=== PATIENT | female | born 1960 | race Caucasian/White ===

== ENCOUNTER → 2016-10-03 | Outpatient (CLI) | payer OTHER ==
[~2016-10-03] MED LIST: CALC-192 PO; CHOL20002 PO; MULT-516 PO; OMEG1CAP24 PO; VITA1CAP PO; bioidentical hormone; tumeric PO
[2016-10-03 10:04] LABS: HEMOGLOBIN 13.4 g/dL (11.7-16.4)
[2016-10-03 10:13] LABS: BLOOD UREA NITROGEN 17 mg/dL (7-18)
== END | disposition home or self-care (01) ==
LOC: STAR 09:11
PROVIDERS: ATTEND Neurological Surgery
DX: Z01.818 Encounter for other preprocedural examination (principal); D32.1 Benign neoplasm of spinal meninges; R79.1 Abnormal coagulation profile
CPT/HCPCS: 36415; 71020; 80048; 85025; 85610; 85730; 93005

== ENCOUNTER 2016-10-24 05:31 | Inpatient (IN) | payer OTHER ==
[2016-10-03 09:40] VITALS: BP 117/72
[~2016-10-24] VITALS: Ht 157.5 cm; Wt 54.1 kg
[2016-10-24] MEDS ORDERED: LACTATED RINGERS 1,000 ML IV SCH (06:39)
[2016-10-24] MEDS ORDERED: LIDOCAINE 1%, 2ML ONE (06:40)
[2016-10-24] MEDS ORDERED: LIDOCAINE 1%, 2ML SQ PRN (07:00)
[2016-10-24] MEDS ORDERED: BACITRACIN 50,000 UNIT ONE (07:41)
[2016-10-24] MEDS ORDERED: BUPIVACAINE/PF-EPI 0.25% 1:200K ONE (07:41)
[2016-10-24] MEDS ORDERED: THROMBIN 5,000 UNIT VIAL TP ONE (07:41)
[2016-10-24] MEDS ORDERED: KETAMINE 10 MG/ML, 20ML ONE (07:48)
[2016-10-24] MEDS ORDERED: FENTANYL PF 250 MCG/5ML ONE (07:48)
[2016-10-24] MEDS ORDERED: PROPOFOL 10 MG/ML, 50ML ONE (07:58)
[2016-10-24] MEDS ORDERED: METOCLOPRAMIDE 5 MG/ML, 2ML ONE (07:58)
[2016-10-24] MEDS ORDERED: ONDANSETRON 2MG/ML, 2ML ONE (07:58)
[2016-10-24] MEDS ORDERED: ROCURONIUM 10 MG/ML ONE (07:58)
[2016-10-24] MEDS ORDERED: CEFAZOLIN 1,000 MG ONE (07:58)
[2016-10-24] MEDS ORDERED: SUCCINYLCHOLINE 20 MG/ML, 10ML ONE (07:58)
[2016-10-24] MEDS ORDERED: PROPOFOL 10 MG/ML, 20ML ONE (07:58)
[2016-10-24] MEDS ORDERED: DEXAMETHASONE 4 MG/ML, 1ML ONE (07:58)
[2016-10-24] MEDS ORDERED: FENTANYL PF 100 MCG/2ML IV PRN (08:30)
[2016-10-24] MEDS ORDERED: OXYcodone 5 MG/5 ML ORAL.SOL UDC PO PRN (08:30)
[2016-10-24] MEDS ORDERED: MEPERIDINE/PF 25MG/0.5ML IVPush PRN (08:30)
[2016-10-24] MEDS ORDERED: hydrALAzine 20 MG/ML, 1ML IV PRN (08:30)
[2016-10-24] MEDS ORDERED: LABETALOL 5MG/ML, 20ML IV PRN (08:30)
[2016-10-24] MEDS ORDERED: PROMETHAZINE 25 MG/ML, 1ML IV PRN (08:30)
[2016-10-24] MEDS ORDERED: ONDANSETRON 2MG/ML, 2ML IVPush PRN (08:30)
[2016-10-24] MEDS ORDERED: MIDAZOLAM 1 MG/ML, 2ML IV PRN (08:30)
[2016-10-24] MEDS ORDERED: HYDROmorphone 1 MG/ML, 1ML IV PRN (08:30)
[2016-10-24] MEDS ORDERED: BACITRACIN OINT 500U/GM, 15 GM ONE (08:35)
[2016-10-24] MEDS ORDERED: BISACODYL 10 MG SUPP PR PRN (10:30)
[2016-10-24] MEDS ORDERED: DIPHENHYDRAMINE 50 MG CAPSULE PO PRN (10:30)
[2016-10-24] MEDS ORDERED: MAGNESIUM HYDROXIDE 8%, 30ML UDC PO PRN (10:30)
[2016-10-24] MEDS ORDERED: SENNA/DOCUSATE TABLET PO PRN (10:30)
[2016-10-24] MEDS ORDERED: HYDROcodone/APAP 5/325 TABLET PO PRN (10:30)
[2016-10-24] MEDS ORDERED: HYDROmorphone PCA 30 MG/30 ML IV PRN (10:30)
[2016-10-24] MEDS ORDERED: PHARMACY MAY ADJ FOR RENAL FX MC PRN (10:30)
[2016-10-24] MEDS ORDERED: OXYcodone/APAP 5/325MG TABLET PO PRN (10:30)
[2016-10-24] MEDS ORDERED: PROMETHAZINE 25 MG/ML, 1ML IM PRN (10:30)
[2016-10-24] MEDS ORDERED: HYDROmorphone PCA 30 MG/30 ML ONE (10:37)
[2016-10-24] MEDS: METHOCARBAMOL 750 MG TABLET PO PRN (12:20)
[2016-10-24 14:33] VITALS: BP 116/73
[2016-10-24] MEDS: NS + 20MEQ KCL 1,000 ML IV SCH (15:50)
[2016-10-24] MEDS: CEFAZOLIN PMX 1GM/50ML 50 ML IVPB SCH (15:50)
[2016-10-24 19:16] VITALS: BP 113/68
[2016-10-24] MEDS: SODIUM CHLORIDE FLUSH 10ML SYR IVF SCH (20:12)
[2016-10-24] MEDS: ONDANSETRON 2MG/ML, 2ML IVPush PRN (20:12)
[2016-10-24] MEDS: CALCIUM/VITAMIN D3 250-125 TABLET PO SCH (20:17)
[2016-10-24] MEDS: CHOLECALCIFEROL 1,000 UNIT TABLET PO SCH (20:17)
[2016-10-25] MEDS: CEFAZOLIN PMX 1GM/50ML 50 ML IVPB SCH (00:49)
[2016-10-25] MEDS: METHOCARBAMOL 750 MG TABLET PO PRN ×3 (00:49→17:12)
[2016-10-25 01:58] VITALS: BP 93/59
[2016-10-25] MEDS: NS + 20MEQ KCL 1,000 ML IV SCH ×2 (03:53→15:59)
[2016-10-25] MEDS: ONDANSETRON 2MG/ML, 2ML IVPush PRN ×2 (04:28→12:00)
[2016-10-25 08:05] VITALS: BP 94/64
[2016-10-25] MEDS: MULTIVITAMIN 1 TABLET PO SCH (09:33)
[2016-10-25] MEDS: MULTIVITS,STRESS FORMULA 1 TABLET PO SCH (09:33)
[2016-10-25] MEDS: CALCIUM/VITAMIN D3 250-125 TABLET PO SCH ×2 (09:34→20:45)
[2016-10-25] MEDS: CHOLECALCIFEROL 1,000 UNIT TABLET PO SCH ×2 (09:34→20:45)
[2016-10-25] MEDS: SODIUM CHLORIDE FLUSH 10ML SYR IVF SCH ×2 (09:34→20:45)
[2016-10-25] MEDS ORDERED: KETOROLAC 30 MG/1 ML IM PRN (13:00)
[2016-10-25 13:25] VITALS: BP 99/64
[2016-10-25] MEDS: KETOROLAC 30 MG/1 ML IV PRN ×2 (14:05→22:20)
[2016-10-25 20:03] VITALS: BP 91/58
[2016-10-26] MEDS: METHOCARBAMOL 750 MG TABLET PO PRN ×2 (00:21→08:22)
[2016-10-26 00:57] VITALS: BP 82/46
[2016-10-26 02:09] VITALS: BP 95/62
[2016-10-26] MEDS: NS + 20MEQ KCL 1,000 ML IV SCH (02:30)
[2016-10-26] MEDS: KETOROLAC 30 MG/1 ML IV PRN (06:04)
[2016-10-26] MEDS: MULTIVITS,STRESS FORMULA 1 TABLET PO SCH (09:41)
[2016-10-26] MEDS: CALCIUM/VITAMIN D3 250-125 TABLET PO SCH (09:41)
[2016-10-26] MEDS: MULTIVITAMIN 1 TABLET PO SCH (09:41)
[2016-10-26] MEDS: CHOLECALCIFEROL 1,000 UNIT TABLET PO SCH (09:41)
[2016-10-26] MEDS ORDERED: TRAM50TA2 PO (11:03)
[2016-10-26] MEDS ORDERED: METH750T87 PO (11:04)
[2016-10-26 11:24] VITALS: BP 125/82
== END 2016-10-26 11:37 | disposition home or self-care (01) | DRG 30 ==
LOC: OUT 05:31 → 4NOR 11:42 → OUT 23:39 → 4NOR 23:40
PROVIDERS: ADMIT Neurological Surgery; ATTEND Neurological Surgery
PROC: 4A11X4G Monitoring of Peripheral Nervous Electrical Activity, Intraoperative, External Approach (ICD-10-PCS; 2016-10-24)
PROC: 00BX0ZZ Excision of Thoracic Spinal Cord, Open Approach (ICD-10-PCS; principal; 2016-10-24 08:00)
DX: D32.1 Benign neoplasm of spinal meninges (principal); Z82.49 Family history of ischemic heart disease and other diseases of the circulatory system
CPT/HCPCS: 36415; 72072; 82306; 86850; 86900; 88304; 88331; 95938; 95941; J0690; J1100; J1170; J1885; J2405; J2704; J3010; J3480; J3490; C1763; J0330; J2765; J7120

== ENCOUNTER 2017-06-03 02:32 | Emergency (ER) | payer OTHER ==
[~2017-06-03] VITALS: Ht 157.5 cm; Wt 55.3 kg
[~2017-06-03 02:32] MED LIST changes: +METH750T87 PO; +TRAM50TA2 PO
[2017-06-03 02:34] VITALS: BP 130/80
== END 2017-06-03 03:35 | disposition home or self-care (01) ==
LOC: ED 03:30
DX: T15.00XA Foreign body in cornea, unspecified eye, initial encounter (principal); X58.XXXA Exposure to other specified factors, initial encounter; Y93.89 Activity, other specified; Y92.89 Other specified places as the place of occurrence of the external cause; Y99.8 Other external cause status
CPT/HCPCS: 99281